=== PATIENT | female | born 1995 | race African-American/Black ===

== ENCOUNTER 2019-05-12 17:13 | Emergency (ER) | payer OTHER, SELFPAY ==
[2019-05-12 17:25] VITALS: BP 121/67; PULSE 73; RESP 16; TEMP 36.8; O2SAT 100
--- NOTE | 2019-05-12 17:42 | ED.GENADULT ---
HPI - General Adult General Chief complaint: Dizziness Stated complaint: Tiredness/pain in leg Time Seen by Provider: 05/12/19 17:43 Source: patient and family History of Present Illness HPI narrative: Patient presents with feeling more tired than usual. No fever no cough no ear pain no sore throat. Patient states she has a history of anemia but is not under the care of any primary care provider at this time. Patient denies any shortness of breath no chest pain. Patient states she missed work the last 2 days and needs a note to return to work. Related Data Home Medications Medication Instructions Recorded Confirmed No Home Medications 05/12/19 05/12/19 Allergies Allergy/AdvReac Type Severity Reaction Status Date / Time No Known Allergies Allergy Verified 05/12/19 17:41 Review of Systems Review of Systems: Narrative: CONSTITUTIONAL: Denies chills, or sweats. Reports fever and generalized body aches EYES: Denies visual changes, redness, or discharge. ENT: Denies otalgia. Reports nasal congestion runny nose and sore throat CARDIOVASCULAR: Denies chest pain, palpitations, or edema. RESPIRATORY: Denies dyspnea. Reports occasional cough GASTROINTESTINAL: Denies abdominal pain, nausea, vomiting, or diarrhea. GENITOURINARY: Denies dysuria or hematuria. SKIN: Denies rash or itching. MUSCULOSKELETAL: Denies back pain, joint pain, or myalgia. Reports generalized body aches NEUROLOGIC: Denies headache, numbness, or weakness. PSYCHIATRIC: Denies anxiety or depression. All systems reviewed & are unremarkable except as noted in HPI and below PMFSH Comments At time of signature, agree with nursing past medical, surgical, social and family history. There is no relevant family history pertinent to the presenting complaint Exam Narrative: Exam Narrative: The patient is a well-developed, well-nourished in no acute distress. SKIN: Skin is warm and dry without erythema, swelling or exudate. There is good turgor. No tenting. HEAD: Atraumatic. Normocephalic. No temporal or scalp tenderness. EYES: Moist and bright. Sclera and conjunctivae normal. No discharge. PERRLA. Extraocular motions intact. Gross visual acuity intact. EARS: Pinna is normal shape and contour. Clear external auditory canals. TM pearly cuenca with good cone of light, no erythema or suppuration. Bilateral cerumen noted no gross hearing deficit. NOSE: pink, moist mucosa with good air movement. Clear rhinorrhea without nasal flaring. Septum midline. Mouth: moist mucous membranes. THROAT; mild erythema noted to posterior oropharynx with moderate postnasal drainage. Without exudate or ulceration.. Uvula midline. Normal movement of soft palate. NECK: Supple and nontender with full range of motion without discomfort. No meningeal signs. LUNGS: Equal and bilateral breath sounds without wheezes, rales or rhonchi. CHEST: The chest wall is without retractions or use of accessory muscles. HEART: Has a regular rate and rhythm without murmur, gallops, click or rub. ABDOMEN: Soft, nontender with positive active bowel sounds. No rebound tenderness. EXTREMITIES: Without cyanosis, clubbing or edema. Equal 2+ distal pulses and 2 second capillary refill noted. NEUROLOGIC: alert, active, . The patient moves all extremities with normal muscle strength. Normal muscle tone is noted. Normal coordination is noted. NO focal neurological findings noted. Course Vital Signs Vital signs: Vital Signs Temperature 36.8 C 05/12/19 17:25 Pulse Rate 73 05/12/19 17:25 Respiratory Rate 16 05/12/19 17:25 Blood Pressure 121/67 05/12/19 17:25 Pulse Oximetry 100 05/12/19 17:25 Temperature 36.8 C 05/12/19 17:25 Pulse Rate 73 05/12/19 17:25 Respiratory Rate 16 05/12/19 17:25 Blood Pressure 121/67 05/12/19 17:25 Pulse Oximetry 100 05/12/19 17:25 Discussed need with patient to follow-up with primary care provider for further evaluation treatment and possible lab work. Jad
== END 2019-05-12 17:55 | disposition home or self-care (01) ==
PROVIDERS: Emergency Provider Nurse Practitioner Family
DX: R53.83 Other fatigue (principal); D64.9 Anemia, unspecified
CPT/HCPCS: 99211; G0463

== ENCOUNTER 2019-06-07 17:47 | Emergency (ER) | payer OTHER, SELFPAY ==
[2019-06-07 18:02] VITALS: BP 119/67; PULSE 69; RESP 20; TEMP 36.8; O2SAT 100
--- NOTE | 2019-06-07 18:19 | ED.GENADULT ---
HPI - General Adult General Chief complaint: Chest Pain Stated complaint: Pain in rib cage Time Seen by Provider: 06/07/19 18:19 Source: patient and RN notes reviewed Mode of arrival: ambulatory Limitations: no limitations History of Present Illness HPI narrative: 23-year-old female who presents to [facility] care with complaints of pain to the left lateral chest which increases with movement and deep breathing. Patient states she was helping move small boxes on Friday helping her best friend move and started having soreness to her left lateral chest that evening. Patient denies any cough, fevers, shortness of breath, or anterior chest pain. Patient states that her pain is 6/10 at rest and is up to 8/10 with movement or deep breathing. Patient has not taken anything OTC for her discomfort. MD complaint: pain to left lateral rib area Onset (ago): day(s) (3) Location: chest (left lateral chest) Radiation: non-radiation Severity: moderate Severity scale (1-10): 6 (6/10 at rest, increases to 8/10 with movement and deep breathing) Quality: aching and sharp Pain Consistency: intermittent Relieving factors: none Exacerbating factors: movement and other (deep breathing) Associated symptoms: chest pain (left lateral chest) Treatments prior to arrival: none Related Data Allergies Allergy/AdvReac Type Severity Reaction Status Date / Time No Known Allergies Allergy Verified 06/07/19 18:15 Review of Systems Review of Systems: Narrative: CONSTITUTIONAL: Denies fever, chills, or sweats. EYES: Denies visual changes, redness, or discharge. ENT: Denies rhinorrhea, congestion, sore throat, or otalgia. CARDIOVASCULAR: Denies anterior chest pain, palpitations, or edema. Voices left lateral chest pain RESPIRATORY: Denies cough or dyspnea. GASTROINTESTINAL: Denies abdominal pain, nausea, vomiting, or diarrhea. GENITOURINARY: Denies dysuria or hematuria. SKIN: Denies rash or itching. MUSCULOSKELETAL: Denies back pain, joint pain, or myalgia. NEUROLOGIC: Denies headache, numbness, or weakness. PSYCHIATRIC: Denies anxiety or depression. All systems reviewed & are unremarkable except as noted in HPI and below PMFSH Past Medical History Medical History (Updated 06/07/19 @ 19:17 by Sydney Boateng NP) Anemia Surgical History Surgical History (Updated 06/07/19 @ 18:21 by Sydney Boateng NP) History of loop electrical excision procedure (LEEP) History of tonsillectomy [place] teeth extracted Social History Social History (Updated 06/07/19 @ 18:53 by Sydney Boateng NP) Smoking status: Never smoker Living arrangements: with family Gender identity (if verbalized by the patient): Female Comments At time of signature, agree with nursing past medical, surgical, social history. There is no relevant family history pertinent to the presenting complaint Exam Narrative: Exam Narrative: GENERAL: Well-appearing, well-nourished, and in no acute distress. HEAD: Normocephalic, atraumatic. EYES: PERRLA and EOMI. ENT: Nares clear, no rhinorrhea or epistaxis. Mucous membranes moist.TM's normal with good light reflex, throat pink with no soreness or tonsil enlargement NECK: Supple.no lymphadenopathy CHEST: Clear to auscultation. No respiratory distress.able to take deep breaths stating increase in pain and increase pain with movement, denies any cough or shortness of breath, lung sounds in all lung rojas. HEART: Regular rate and rhythm. No murmur heard. Normal peripheral pulses. ABDOMEN: Soft, nontender, nondistended, normal active bowel sounds. EXTREMITIES: Normal range of motion. No edema. SKIN: Warm, dry, no rash. NEURO: No focal deficits. Alert and oriented x3. Course Vital Signs Vital signs: Vital Signs Temperature 36.8 C 06/07/19 18:02 Pulse Rate 69 06/07/19 18:02 Respiratory Rate 20 06/07/19 18:02 Blood Pressure 119/67 06/07/19 18:02 Pulse Oximetry 100 06/07/19 18:02 Temperature 36.8 C 06/07/19 18:02 Puls
== END 2019-06-07 18:40 | disposition home or self-care (01) ==
PROVIDERS: Emergency Provider Registered Nurse
DX: R07.89 Other chest pain (principal); M94.0 Chondrocostal junction syndrome [Tietze]
CPT/HCPCS: 99213; G0463

== ENCOUNTER 2020-01-05 15:16 | Emergency (ER) | payer OTHER, SELFPAY ==
[2020-01-05 15:22] VITALS: BP 116/71; PULSE 88; RESP 16; TEMP 36.7; O2SAT 100
[2020-01-05 15:39] VITALS: BP 116/71; PULSE 88; RESP 16; TEMP 36.7; O2SAT 100
--- NOTE | 2020-01-05 15:47 | ED.GENADULT ---
HPI - General Adult General Chief complaint: Ear Stated complaint: ear pain/pressure Time Seen by Provider: 01/05/20 15:47 Source: patient and RN notes reviewed Mode of arrival: ambulatory Limitations: no limitations History of Present Illness HPI narrative: 24-year-old female presents with concern for bilateral ear pain, sinus pressure, sinus congestion, headache, cough. Reports symptoms started 2 days. Reports has been taking DayQuil and NyQuil with little relief. Reports chills, sweats, denies body aches, fever MD complaint: URI Related Data Home Medications Medication Instructions Recorded Confirmed cyclobenzaprine 5 mg PO TID PRN 01/05/20 01/05/20 Allergies Allergy/AdvReac Type Severity Reaction Status Date / Time No Known Allergies Allergy Verified 01/05/20 15:23 Review of Systems Review of Systems: Narrative: CONSTITUTIONAL: Denies malaise, chills, sweats, or fever. EYES: Denies visual changes, redness, or discharge. ENT: Reports rhinorrhea, congestion, sinus pain, otalgia. Denies sore throat. CARDIOVASCULAR: Denies chest pain, palpitations, or edema. RESPIRATORY: Reports cough. Denies dyspnea. GASTROINTESTINAL: Denies abdominal pain, nausea, vomiting, diarrhea SKIN: Denies rash or itching. MUSCULOSKELETAL: Denies myalgia. NEUROLOGIC: Reports headache. All systems reviewed & are unremarkable except as noted in HPI and below PMFSH Past Medical History Medical History (Updated 01/05/20 @ 15:52 by Jessica Hendrix NP) Anemia Surgical History Surgical History (Updated 06/07/19 @ 18:21 by Sydney Boateng NP) History of loop electrical excision procedure (LEEP) History of tonsillectomy [place] teeth extracted Social History Social History (Updated 06/07/19 @ 18:53 by Sydney Boateng NP) Smoking status: Never smoker Gender identity (if verbalized by the patient): Female Comments At time of signature, agree with nursing past medical, surgical, social and family history. There is no relevant family history pertinent to the presenting complaint Exam Narrative: Exam Narrative: GENERAL: Well-appearing, well-nourished, and in no acute distress. HEAD: Normocephalic EYES: PERRLA, conjunctivae clear ENT: Nares clear, turbinates edematous and erythematous, clear discharge. Mucous membranes moist. TM erythematous and bulging bilaterally; no tragal tenderness. Oropharynx erythematous without lesions. Tonsils not enlarged and without exudate, no drooling, no hoarseness, no trismus, uvula midline. NECK: Supple. No lymphadenopathy CHEST: Clear to auscultation, breath sounds equal. No wheezing, rhonchi, rales, or stridor. No respiratory distress, speaks in full sentences. HEART: Regular rate and rhythm. No murmur heard. SKIN: Warm, dry, no rash. NEURO: Alert and oriented x3. PSYCH: Normal mood and affect Course Course Emergency Course: Patient is aware of diagnosis, understands and agrees to treatment plan. Anticipatory guidance given. Patient agrees to follow-up as directed and is aware of reasons to seek care at the emergency department. Portions of this record may have been created with voice recognition software Vital Signs Vital signs: Vital Signs Temperature 98.0 F 01/05/20 15:22 Pulse Rate 88 01/05/20 15:22 Respiratory Rate 16 01/05/20 15:22 Blood Pressure 116/71 01/05/20 15:22 Pulse Oximetry 100 01/05/20 15:22 Temperature 98.0 F 01/05/20 15:39 Pulse Rate 88 01/05/20 15:39 Respiratory Rate 16 01/05/20 15:39 Blood Pressure 116/71 01/05/20 15:39 Pulse Oximetry 100 01/05/20 15:39 Reviewed. Medical Decision Making MDM Narrative Medical decision making narrative: Differential diagnosis considered: [place] virus, strep pharyngitis, allergic rhinitis, upper respiratory tract infection, sinusitis, rhinosinusitis, nasopharyngitis. viral pharyngitis, otitis media, otitis externa, pneumonia, bronchitis, viral cough syndrome, viral syndrome, and influenza. Ex
== END 2020-01-05 15:57 | disposition home or self-care (01) ==
PROVIDERS: Emergency Provider Nurse Practitioner; PCP Hospitalist
DX: H66.003 Acute suppurative otitis media without spontaneous rupture of ear drum, bilateral (principal); U07.1 COVID-19
CPT/HCPCS: 99213; G0463

== ENCOUNTER 2020-01-07 06:54 | Outpatient (NON) | payer OTHER, SELFPAY ==
[2020-01-09 15:47] LABS: SARS-CoV-2 RNA PCR Negative
== END 2020-01-07 06:55 ==
PROVIDERS: PCP Hospitalist; Visit Provider Nurse Practitioner
DX: Z20.828 Contact with and (suspected) exposure to other viral communicable diseases (principal); H66.90 Otitis media, unspecified, unspecified ear
CPT/HCPCS: 87635; C9803; U0003

== ENCOUNTER 2021-03-15 10:52 | Emergency (ER) | payer OTHER, SELFPAY ==
[2021-03-15 11:22] VITALS: BP 116/65; PULSE 76; RESP 16; TEMP 36.5; O2SAT 100
--- NOTE | 2021-03-15 12:00 | ED.URI ---
HPI - URI/Sore Throat General Chief Complaint: Upper Respiratory Infection Stated Complaint: Ear pain, cough Source: patient Mode of arrival: ambulatory Limitations: no limitations History of Present Illness HPI Narrative: 25-year-old female presents to urgent care with complaints of bodies, chills, dry cough and right ear pain for the past few days. Patient reports that she did have a negative PCR COVID test completed 2 days ago. Patient has been taking [id number] Tylenol with minimal relief. Patient denies fever, nausea, vomiting or diarrhea. Patient denies sick contacts. Patient denies recent travel MD elicited complaint: cough, rhinorrhea and nasal congestion Onset (ago): day(s) (3) Able to tolerate fluids by mouth: Yes Relieving factors: nothing Related Data Home Medications Medication Instructions Recorded Confirmed clonazepam 0.5 mg PO DAILY PRN 03/15/21 03/15/21 mirtazapine 15 mg PO DAILY 03/15/21 03/15/21 norethindrone-e.estradiol-iron 1 tablet PO DAILY 03/15/21 03/15/21 [Aurovela 24 Fe] sertraline 50 mg PO DAILY 03/15/21 03/15/21 zolpidem 6.25 mg PO HS PRN 03/15/21 03/15/21 Allergies Allergy/AdvReac Type Severity Reaction Status Date / Time No Known Allergies Allergy Verified 03/15/21 11:30 Review of Systems Constitutional: Constitutional: Reports chills, Denies fatigue, Denies fever(s) and Denies weakness ENT: Denies vertigo, Denies dizziness, Denies nasal congestion and Denies sore throat Comments: Right ear pain Cardiovascular: Cardiovascular: Denies chest pain, Denies rapid heart rate and Denies radiating jaw, neck or arm pain Respiratory: Respiratory: Reports cough and Denies dyspnea Gastrointestinal: Gastrointestinal: Denies diarrhea, Denies nausea and Denies vomiting Integumentary/Breasts: Skin/Breast: Denies rash Neurologic: Denies vertigo, Denies dizziness and Denies syncope [facility] Past Medical History Medical History Anemia Surgical History Surgical History History of loop electrical excision procedure (LEEP) History of tonsillectomy [place] teeth extracted Social History Social History Smoking status: Never smoker Gender identity (if verbalized by the patient): Female Comments At time of signature, I agree with nursing past medical, surgical, social and family history. There is no relevant family history pertinent to the presenting complaint. Exam Const: General: healthy appearing and no acute distress Orientation/consciousness: patient oriented x3 HENMT: Ears: external ears normal and Abnormal EAC present General nose exam: Normal nares present Mouth: Yes Normal oral and palatal mucosa present and Yes moist mucous membranes Teeth and gingiva: dentition normal Throat: uvula midline Other: Moderate erythema and bulging noted to right TM. Neck: Neck: normal visual inspection Resp: Effort & Inspection: normal respiratory effort Auscultation: clear to auscultation bilaterally Cardio: Rate: regular rate Rhythm: regular rhythm Skin: General skin exam: normal color Rashes: no rashes Neuro: General: patient oriented x3, moves all extremities and no meningeal signs Psych: Affect: normal affect Attitude: cooperative Course Course Level of Care: Express Care Visit Vital Signs Vital signs: Vital Signs Temperature 36.5 C 03/15/21 11:22 Pulse Rate 76 03/15/21 11:22 Respiratory Rate 16 03/15/21 11:22 Blood Pressure 116/65 03/15/21 11:22 Pulse Oximetry 100 03/15/21 11:22 Temperature 36.5 C 03/15/21 11:22 Pulse Rate 76 03/15/21 11:22 Respiratory Rate 16 03/15/21 11:22 Blood Pressure 116/65 03/15/21 11:22 Pulse Oximetry 100 03/15/21 11:22 MDM - URI/Sore Throat MDM Narrative Medical decision making narrative: Patient agrees to take medications as pres
== END 2021-03-15 12:10 | disposition home or self-care (01) ==
PROVIDERS: Emergency Provider Nurse Practitioner Family; PCP Hospitalist
DX: H66.91 Otitis media, unspecified, right ear (principal); J06.9 Acute upper respiratory infection, unspecified
CPT/HCPCS: 87804; 99213; G0463

== ENCOUNTER 2021-08-27 12:49 | Emergency (ER) | payer OTHER, SELFPAY ==
[2021-08-27 13:00] VITALS: BP 119/74; PULSE 90; RESP 16; TEMP 37.1; O2SAT 98
--- NOTE | 2021-08-27 13:11 | ED.EAR ---
HPI - Ear Problem General Chief complaint: Ear Stated complaint: Ear Pain Time Seen by Provider: 08/27/21 13:11 Source: patient, RN notes reviewed and old records reviewed Mode of arrival: ambulatory Limitations: no limitations History of Present Illness HPI Narrative: 25-year-old female who presents to [facility] with complaints of fever starting Friday night which finally broke on Friday morning. Patient states she has had bilateral ear pain, she had pounding headache, some throat discomfort.Patient reports she has had COVID vaccinations but no flu shot, states she did home COVID test on Friday which was negative. Patient reports that she has been taking Tylenol for her discomfort. MD Complaint: ear pain and other (fever,headache, nasal congestion,) Related Data Home Medications Medication Instructions Recorded Confirmed norethindrone 1 mg-ethinyl 1 tablet PO DAILY 03/15/21 08/27/21 estradiol 20 mcg (24)-iron 75 mg (4) tablet (Aurovela 24 Fe) sertraline 50 mg tablet 50 mg PO DAILY 03/15/21 08/27/21 Allergies Allergy/AdvReac Type Severity Reaction Status Date / Time No Known Allergies Allergy Verified 03/15/21 11:30 Review of Systems Review of Systems: CONSTITUTIONAL:Positive for fever, chills, or sweats. EYES: Denies visual changes, redness, or discharge. ENT:Positive for scant rhinorrhea, congestion, sore throat,bilateral otalgia. CARDIOVASCULAR: Denies chest pain, palpitations, or edema. RESPIRATORY: Denies cough or dyspnea. GASTROINTESTINAL: Denies abdominal pain, nausea, vomiting, or diarrhea. GENITOURINARY: Denies dysuria or hematuria. SKIN: Denies rash or itching. MUSCULOSKELETAL: Denies back pain, joint pain, or myalgia. NEUROLOGIC: Denies headache, numbness, or weakness. PSYCHIATRIC: Positive for history of anxiety or depression. [facility] Past Medical History Medical History Anemia Surgical History Surgical History History of loop electrical excision procedure (LEEP) History of tonsillectomy [place] teeth extracted Social History Social History (Updated 08/27/21 @ 13:49 by Sydney Boateng NP) Smoking packs per day: 0.25 Smoking cigarettes per day: 5.0 Smoking status: Current every day smoker Tobacco type: cigarettes Gender identity (if verbalized by the patient): Female Comments At time of signature, agree with nursing past medical, surgical, social and family history. There is no relevant family history pertinent to the presenting complaint Exam Narrative: GENERAL: Well-appearing, well-nourished, and in no acute distress. HEAD: Normocephalic, atraumatic. EYES: PERRLA and EOMI. ENT: Nares with minimal redness, clear rhinorrhea no epistaxis. Mucous membranes moist.Left TM red with bulging, Right TM normal with good light reflex, throat with some redness no lesions or exudates no tonsils present NECK: Supple.no lymphadenopathy CHEST: Clear to auscultation. No respiratory distress.SAO2 98% on room air no tachypnea HEART: Regular rate and rhythm. No murmur heard. Normal peripheral pulses. ABDOMEN: Soft, nontender, nondistended, normal active bowel sounds. EXTREMITIES: Normal range of motion. No edema. SKIN: Warm, dry, no rash. NEURO: No focal deficits. Alert and oriented x3. Course Course Level of Care: Express Care Visit Vital Signs Vital signs: Vital Signs Temperature 37.1 C 08/27/21 13:00 Pulse Rate 90 08/27/21 13:00 Respiratory Rate 16 08/27/21 13:00 Blood Pressure 119/74 08/27/21 13:00 Pulse Oximetry 98 08/27/21 13:00 Oxygen Delivery Room Air 08/27/21 13:00 Temperature 37.1 C 08/27/21 13:00 Pulse Rate 90 08/27/21 13:00 Respiratory Rate 16 08/27/21 13:00 Blood Pressure 119/74 08/27/21 13:00 Pulse Oximetry 98 08/27/21 13:00 Oxygen Delivery Room Air 08/27/21 13:00 Medical Decision Making Differential Diagnosis
== END 2021-08-27 14:00 | disposition home or self-care (01) ==
PROVIDERS: Emergency Provider Registered Nurse; PCP Hospitalist
DX: H66.92 Otitis media, unspecified, left ear (principal); Z20.822 Contact with and (suspected) exposure to COVID-19; F17.210 Nicotine dependence, cigarettes, uncomplicated
CPT/HCPCS: 87081; 87426; 87804; 87880; 99213; C9803; G0463